=== PATIENT | female | born 1960 | race Caucasian/White ===

== ENCOUNTER 2022-03-16 10:37 | Emergency (ER) | payer OTHER ==
[2022-03-16 11:12] LABS: BASOPHIL 0.4 % (0-2); EOSINOPHIL 0 % (0-5); HCT 39.8 % (37.0-47.0); HGB 13.7 g/dl (12.5-16.0); LYMPHOCYTE 4.4 % (15-48); MCH 30.6 pg (25.0-31.0); MCHC 34.4 g/dL (32.0-36.0); MONOCYTE 8.3 % (0-12); MPV 9.9 fL (6.0-9.5); NRBC 0; PLT 223 K/uL (150-400); RBC 4.47 M/uL (4.20-5.40); WBC 18.7 K/uL (4.0-10.5)
[2022-03-16 11:51] LABS: BUN/CREAT RATIO (CALC) 19.9 RATIO; CREATININE 1.41 mg/dL (0.51-0.95); POTASSIUM 3.7 mmol/L (3.5-5.1)
[2022-03-16] MEDS ORDERED: AZITHROMYCIN250 MG PO (12:44)
== END 2022-03-16 15:33 | disposition home or self-care (01) ==
LOC: FER 10:37
PROVIDERS: Emergency Medicine
DX: J40 Bronchitis, not specified as acute or chronic (principal); Z20.822 Contact with and (suspected) exposure to COVID-19
CPT/HCPCS: 36415; 71045; 80048; 85025; 87880; 93005; J0456; J7030; J7050; U0002